=== PATIENT | female | born 1940 | race Caucasian/White ===

== ENCOUNTER 2021-04-17 06:56 | Inpatient (IN) | payer MEDICARE, MEDICAID ==
[~2021-04-17] VITALS: Ht 149.9 cm; Wt 59.0 kg
[2021-04-17 06:56] VITALS: BP 163/104
[2021-04-17 07:20] LABS: ABSOLUTE LYMPHOCYTES 2.8 thou/uL (0.8-5.3); ABSOLUTE MONOCYTES 1.2 thou/uL (0.0-1.2); ABSOLUTE NEUTROPHILS 8.5 thou/uL (1.6-8.1); BASOPHILS 0.2 %; EOSINOPHILS 0.1 %; HEMATOCRIT 39.4 % (37.0-47.0); HEMOGLOBIN 12.4 gm/dL (12.0-15.0); LYMPHOCYTES 22.2 %; MCH 28.4 pg (26.0-34.0); MCHC 31.5 g/dL (28.0-37.0); MONOCYTES 9.5 %; MPV 9.2 fl. (7.2-11.1); NUCLEATED RBCS 0 /100WBC; PLATELET COUNT* 297 thou/uL (150-400); RBC 4.38 mil/uL (4.20-5.00); RDW-CV 13.9 % (10.5-14.5); WBC 12.5 thou/uL (4.0-11.0)
[2021-04-17 07:40] LABS: BE -5.6 mmol/L (-2 to +3); PCO2 49.8 mmHg (35.0-45.0)
[2021-04-17 07:44] LABS: PO2 145.9 mmHg (75.0-100.0)
[2021-04-17 07:45] LABS: CALCIUM 8.6 mg/dL (8.5-10.1); CREATININE 1.8 mg/dL (0.6-1.3); POTASSIUM 3.4 mmol/L (3.5-5.1)
[2021-04-17 07:47] LABS: pH 7.258 (7.340-7.450)
[2021-04-17] MEDS ORDERED: SENNA LAX8.6 MG PO (07:51)
[2021-04-17] MEDS ORDERED: PROAIR HFA8.5 GM INH (07:51)
[2021-04-17] MEDS ORDERED: CARVEDILOL12.5 MG PO (07:52)
[2021-04-17] MEDS ORDERED: ST. JOSEPH ASPI81 MG PO (07:52)
[2021-04-17] MEDS ORDERED: DULOXETINE HCL30 MG PO (07:52)
[2021-04-17] MEDS ORDERED: LASIX 40 MG TAB40 MG PO (07:53)
[2021-04-17] MEDS ORDERED: ELIQUIS5 MG PO (07:53)
[2021-04-17] MEDS ORDERED: JARDIANCE25 MG PO (07:53)
[2021-04-17] MEDS ORDERED: ATIVAN0.5 M1 PO (07:54)
[2021-04-17] MEDS ORDERED: ACETAMINOPHEN1 EACH PO (07:55)
[2021-04-17] MEDS ORDERED: VALSARTAN40 MG PO (07:55)
[2021-04-17 07:56] LABS: ALBUMIN 3.5 g/dL (3.4-5.0); TOTAL BILIRUBIN 0.5 mg/dL (<0.1-1.0); TOTAL PROTEIN 7.4 g/dL (6.4-8.2)
[2021-04-17 08:17] LABS: APTT 29.3 Seconds (25.0-31.3); INR 1.1; PROTIME 11.4 Seconds (9.20-11.50)
[2021-04-17 11:35] LABS: URINE BILIRUBIN NEGATIVE (Negative); URINE BLOOD 3+ (Negative); URINE CLARITY CLEAR; URINE COLOR YELLOW; URINE GLUCOSE-RANDOM 3+ (Negative); URINE KETONES NEGATIVE (Negative); URINE LEUKOCYTES-REFLEX NEGATIVE (Negative); URINE NITRITE-REFLEX NEGATIVE (Negative); URINE PROTEIN 2+ (Negative); URINE SPECIFIC GRAVITY >= 1.030 (1.005-1.030); URINE UROBILINOGEN 0.2 E.U./dl (0.2-1.0)
[2021-04-17 11:45] LABS: SQUAMOUS 0-3 Few /LPF (0-3); URINE RBC 3-10 Few /HPF (0-2); URINE WBC-REFLEX 0-5 Rare /HPF (0-5)
[2021-04-17 11:46] LABS: BACTERIA-REFLEX 1-9 Few /HPF (None Seen); CASTS None Seen /LPF (None Seen); CRYSTALS None Seen /LPF (None Seen); MUCUS None Seen strn/LPF (None Seen); YEAST-REFLEX Present (None Seen)
[2021-04-17 12:00] VITALS: BP 110/56
--- NOTE | 2021-04-17 12:55 | EKG ---
[place] [address] ELECTROCARDIOGRAM REPORT Name: KP CARTER Room: [place] [address] ADM IN [facility]#: [id number] Admission: 04/17/21 Attend Phys: Mil Mcgee Discharge: Date of : 36 Date of Service: 04/17/21 0656 Report #: [id number] THIS REPORT FOR: //name// 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1940 Requested By: Jigna Alcocer Order Number: [id number] MD: Isaac Blackburn Measurements Intervals [place] Rate: 118 P: 55 MS: 143 QRS: 11 QRSD: 146 T: 205 QT: 316 QTc: 443 Interpretive Statements Sinus tachycardia Paired ventricular premature complexes Left bundle branch block No previous ECG available for comparison Electronically Signed On 04-17-2021 12:55:18 RESEARCH METHODOLOGIST by Isaac Blackburn [email or web address] <ELECTRONICALLY SIGNED> By: Isaac Blackburn MD, FACC 04/17/21 1255 0656 0656 Isaac Blackburn MD, FACC /EPI
[2021-04-17 15:26] LABS: BF RBC 288086 /mm3; TOTAL CELL COUNT 1637 /mm3
[2021-04-17 16:00] VITALS: BP 128/66
[2021-04-17 16:19] LABS: BF EOSINOPHILS 1 %; BF LYMPHOCYTES 87 %; BF MONOCYTES 3 %; BF POLYS 9 %; SOURCE PLEURAL FLUID; TOTAL VOLUME 1700 ml
[2021-04-17 16:20] LABS: CLARITY CLOUDY
--- NOTE | 2021-04-17 19:59 | NUR ---
SPOKE WTIH DR. VICENTE REGARDING LEFT PNEUMOTHORAX. DR. VICENTE ORDERED A CONSULT TO SURGERY AT THIS TIME. WILL CONTINUE TO MONITOR.
--- NOTE | 2021-04-17 20:04 | NUR ---
SPOKE WITH DR. GUILLERMO WITH SURGERY. HE WILL REVIEW THE CHEST X-RAY AND CALL ME BACK REGARDING INTERVENTIONS FOR THE LEFT SIDED PNEUMOTHORAX. WILL CONTINUE TO MONITOR.
[2021-04-17 21:04] LABS: BE -1.6 mmol/L (-2 to +3); PCO2 39.8 mmHg (35.0-45.0); PO2 92.5 mmHg (75.0-100.0); pH 7.384 (7.340-7.450)
[2021-04-17 21:44] VITALS: BP 145/84
--- NOTE | 2021-04-17 21:47 | NUR ---
CALLED PATIENT'S NEXT OF KIN, DAUGHTER, LISA PARKINSON, AND CONSENT GIVEN FOR CHEST TUBE INSERTION BY DR. GUILLERMO. SECOND NURSE WITNESS, GOMEZ FOOTE RN.
[2021-04-17 22:00] VITALS: BP 148/64
[2021-04-18] MEDS ORDERED: METFORMIN HCL500 M3 PO (03:55)
[2021-04-18] MEDS ORDERED: TYLENOL325 MG PO (03:58)
[2021-04-18 04:00] VITALS: BP 113/73
--- NOTE | 2021-04-18 05:55 | NUR ---
PT CONTINUOUSLY REMOVING BIPAP AND PULLING OFF DEVICES, PT CONFUSED, UNABLE TO FOLLOW COMMANDS. ATTEMPTED PRN LORAZEPAM AND SOFT MITTENS BUT INEFFECTIVE. DR. VICENTE CALLED, NEW ORDERS RECEIVED FOR BILAT SOFT WRIST RESTRAINTS.
[2021-04-18 08:00] VITALS: BP 109/68
[2021-04-18 13:07] VITALS: BP 162/84
--- NOTE | 2021-04-18 14:01 | NUR ---
CM ASSESSMENT ASSESSMENT COMPLETED WITH PT'S DAUGHTER (LISA PARKINSON - [phone]). PT RESIDES AT [facility] ([phone]) AND JUST RECENTLY MOVED THERE AROUND [facility] THIS YEAR. PT IS TERMINAL AND WILL RETURN TO [place] WHEN MED CLEAR. PT USES A WALKER, O2, AND CPAP. CM TO CONTINUE TO FOLLOW FOR DC PLANNING NEEDS.
[2021-04-18 14:02] LABS: HEMATOCRIT 37.8 % (37.0-47.0); HEMOGLOBIN 12.3 gm/dL (12.0-15.0); MCH 28.4 pg (26.0-34.0); MCHC 32.5 g/dL (28.0-37.0); MCV 87.3 fL (80.0-100.0); MPV 9.9 fl. (7.2-11.1); NUCLEATED RBCS 0 /100WBC; PLATELET COUNT* 249 thou/uL (150-400); RBC 4.33 mil/uL (4.20-5.00); RDW-CV 13.8 % (10.5-14.5); WBC 10.1 thou/uL (4.0-11.0)
[2021-04-18 14:25] LABS: ABSOLUTE LYMPHOCYTES 0.5 thou/uL (0.8-5.3); ABSOLUTE MONOCYTES 0.3 thou/uL (0.0-1.2); ABSOLUTE NEUTROPHILS 9.3 thou/uL (1.6-8.1); PLATELET ESTIMATE ADEQUATE
--- NOTE | 2021-04-18 15:17 | NUR ---
RT WAS NOTIFIED THAT PT VOMITED WHILE ON BIPAP. RT WENT TO GO CHECK TO SEE IF EVERYTHING WAS ALRIGHT AND EVERYTHING IS. PT IS CURRENTLY STILL ON BIPAP DUE TO RESPIRATORY DISTRESS BREATHING MID 40'S TO LOW 50'S. PT IS IN CRITICAL SHAPE. RT DISCUSSED WITH RN THAT IF SHE VOMITS AGAIN, TO NOTIFY THE PHYSICAN ON THE NEXT COURSE OF ACTION BECAUSE IT IS A CONTRAINDICATION DUE TO ASPIRATION.
[2021-04-18 16:30] VITALS: BP 112/71
[2021-04-18 20:01] VITALS: BP 102/66
[2021-04-19] VITALS: BP 80/48
--- NOTE | 2021-04-19 01:10 | NUR ---
PT FOUND WITH DARK BROWN THIN VOMIT FULL IN BIPAP MASK AT 0050. BIPAP REMOVED. 6L-O2 APPLIED, ASPIRATION PRECAUTIONS IN PLACE. PT ON LEFT SIDE RESTING COMFORTABLY. O2 SAT IS 97% AT THIS TIME.
[2021-04-19 04:00] VITALS: BP 80/37
--- NOTE | 2021-04-19 06:45 | NUR ---
time of 06:08 home notified 0645. family notified at 06:19 Cinthia (daughter) DR Mcgee paged at 06:23.
--- NOTE | 2021-04-19 10:35 | NUR ---
patient picked up and discharged to home
[2021-04-19 11:08] LABS: BODY FLUID PH 8.5 (Not Estab.)
[2021-04-19 13:08] LABS: BODY FLUID PROTEIN 5.4 g/dL (())
--- NOTE | 2021-04-19 15:07 | PATH ---
[address] [address] PATHOLOGY RPT PROCEDURE Name: KP CARTER Room: [address] IN [facility]#: [id number] Admission: 04/17/21 Date of : 36 Discharge: Report #: [id number] Path Case #: [id number] Note [facility] Accession Number: [id number] TESTS RESULT FLAG UNITS REF RANGE LAB Clinician Provided Cytology Information No. of containers..01 Other (Miscellaneous) Source: LT PLEURAL EFFUSION DIAGNOSIS: LT PLEURAL EFFUSION INCONCLUSIVE. THIS INTERPRETATION INCLUDES EVALUATION OF A CELL BLOCK. Signed out by: 02 Ramiro Nunez MD, Pathologist NPI- [id number] Performed by: 01 Karen Kennedy, Milk Pickup Truck Driver ([facility]) Gross description: 01 90ML, DARK RED, TURBID /LCS 04/18/2021 0300 Local FLAG LEGEND: L-Low Normal,H-High Normal,LL-Alert Low,HH-Alert High <-Panic Low,>-Panic High,A-Abnormal,AA-Critical Abnormal Performed at: [address] [place] [address] Jaren Vo MD, [address] [place] [id number] Ramiro Nunez MD, Specimen Comment: A courtesy copy of this report has been sent to [phone], [phone] Specimen Comment: [phone] Specimen Comment: Report sent to DR. AGUIRRE / DR BOWSER Specimen Comment: A duplicate report has been generated due to demographic updates. Performed at: [address], [place], [place] [id number] MD Jaren Vo MD Phone: [phone]
--- NOTE | 2021-04-19 16:06 | NUR ---
CM FOLLOWUP PT ON 04/19/21.
--- NOTE | 2021-04-19 18:14 | NUR ---
PT.BEING MONITORED FOR ASPIRATION/RISK. INFORMED DR. BOWSER ABOUT IT AND APPRAISED HIM OF PT. STATUS. REPORTED INSPECTOR PLUG SEAM RN TO FOLLOWUP ON HR INCREASE IF SUSTAINED BEYOND WHEN PT REMOVES BIPAP MASK. SITTER WAS AT PT BEDSIDE FOR SEVERAL HOURS IN THE AFTERNOON. PT. IN BED, ON BIPAP WITH MILD TO MODERATE DISTRESS AT SHIFT CHANGE.
== END 2021-04-19 15:25 | DRG 177 ==
LOC: M.ERS 06:56 → M.ORTHSURG 08:19 → M.TBA-ER 08:19 → M.ORTHSURG 21:45
PROVIDERS: Emergency Medicine; Family Medicine; Internal Medicine; ADMIT Internal Medicine; ATTEND Internal Medicine
PROC: 5A09457 Assistance with Respiratory Ventilation, 24-96 Consecutive Hours, Continuous Positive Airway Pressure (ICD-10-PCS; principal; 2021-04-17)
PROC: 0W9B30Z Drainage of Left Pleural Cavity with Drainage Device, Percutaneous Approach (ICD-10-PCS; 2021-04-17)
PROC: 0W9B3ZZ Drainage of Left Pleural Cavity, Percutaneous Approach (ICD-10-PCS; 2021-04-17)
DX: U07.1 COVID-19 (principal); J96.21 Acute and chronic respiratory failure with hypoxia; J12.82 Pneumonia due to coronavirus disease 2019; N17.0 Acute kidney failure with tubular necrosis; J93.0 Spontaneous tension pneumothorax; J94.2 Hemothorax; J44.1 Chronic obstructive pulmonary disease with (acute) exacerbation; J91.8 Pleural effusion in other conditions classified elsewhere; I13.0 Hypertensive heart and chronic kidney disease with heart failure and stage 1 through stage 4 chronic kidney disease, or unspecified chronic kidney disease; E87.1 Hypo-osmolality and hyponatremia; C34.90 Malignant neoplasm of unspecified part of unspecified bronchus or lung; J94.8 Other specified pleural conditions; R77.8 Other specified abnormalities of plasma proteins; E11.65 Type 2 diabetes mellitus with hyperglycemia; N18.9 Chronic kidney disease, unspecified; E11.22 Type 2 diabetes mellitus with diabetic chronic kidney disease; I50.9 Heart failure, unspecified; E87.6 Hypokalemia; D72.829 Elevated white blood cell count, unspecified; Z66 Do not resuscitate; G47.00 Insomnia, unspecified; K59.00 Constipation, unspecified; F41.9 Anxiety disorder, unspecified; F32.A Depression, unspecified; E11.9 Type 2 diabetes mellitus without complications; Z79.899 Other long term (current) drug therapy; Z79.82 Long term (current) use of aspirin; Z79.01 Long term (current) use of anticoagulants